=== PATIENT | female | born 2000 | race Two or more races ===

== ENCOUNTER 2020-11-23 13:15 | Inpatient (IN) | payer OTHER ==
[~2020-11-23] VITALS: Ht 167.6 cm; Wt 61.7 kg
== END 2020-11-25 17:47 | disposition home or self-care (01) | DRG 743 ==
LOC: O/R 11-24 05:41 → OB/GYN 11-24 13:15
PROVIDERS: ADMIT Specialist; ATTEND Specialist
PROC: 0U904ZZ Drainage of Right Ovary, Percutaneous Endoscopic Approach (ICD-10-PCS; 2020-11-24)
PROC: 0UB94ZZ Excision of Uterus, Percutaneous Endoscopic Approach (ICD-10-PCS; 2020-11-24)
PROC: 0UB14ZZ Excision of Left Ovary, Percutaneous Endoscopic Approach (ICD-10-PCS; principal; 2020-11-24 15:30)
DX: D27.1 Benign neoplasm of left ovary (principal); N83.01 Follicular cyst of right ovary; D25.9 Leiomyoma of uterus, unspecified; R19.00 Intra-abdominal and pelvic swelling, mass and lump, unspecified site